=== PATIENT | female | born 1950 | race Caucasian/White ===

== ENCOUNTER → 2018-01-23 | Day surgery (SDC) | payer OTHER, MEDICARE ==
--- NOTE | 2018-01-23 20:39 | OP ---
DATE OF OPERATION: 01/23/2018 PREOPERATIVE DIAGNOSIS: Right breast mass at 12 o'clock, 4 cm from the nipple. POSTOPERATIVE DIAGNOSIS: Right breast mass at 12 o'clock, 4 cm from the nipple. PROCEDURE: Right ultrasound-guided core biopsy with clip placement. ANESTHESIA: Local. ATTENDING SURGEON: Timothy Nguyen MD ESTIMATED BLOOD LOSS: 10 mL COMPLICATIONS: Increased bleeding. DESCRIPTION OF OPERATION: Patient was made aware of the risks and benefits of the procedure and consented. She was placed in supine position. Under sterile conditions with 1% lidocaine for local anesthesia, small huyen was made in the skin. Using a 10-gauge suction biopsy device via lateral approach under ultrasound guidance, multiple cores were obtained and submitted to Pathology. Likewise, under ultrasound guidance, a U-shaped clip was placed into the biopsy region. During the procedure, there was bleeding accumulating by ultrasound, and externally, pressure was applied for a solid 15 minutes which stopped the bleeding. Steri-Strips and a sterile dressing were applied. An Dhaval wrap was wrapped around the chest wall to continue the hemostatic pressure. The patient tolerated the procedure well. We will contact her with results. TIMOTHY NGUYNE M.D. [id number]
--- NOTE | 2018-01-24 17:22 | PATH ---
Surgical Pathology Report Patient Name: SEEMA SPENCER [facility]. Rec. #: [id number] /Age/Gender: 1950 (Age: 67) / F Account: [id number] Location: [facility] RADIOLOGY U Taken: 01/23/2018 Received: 01/23/2018 Reported: 01/24/2018 Physicians: Hill Pulido M.D. Specimen(s) Received RIGHT BREAST 12:00 4CM FN CORE BIOPSY Clinical History Nonpalpable lesion Ultrasound findings: Suspicious Final Diagnosis BREAST, RIGHT, 12:00 4 CM FN, CORE BIOPSY: FIBROADIPOSE TISSUE SHOWING FAT NECROSIS. Electronically Signed Eufemia Jordan M.D. Gross Description Received in formalin labeled "right breast 12:00, 4 cmfn," is a 1.4 cm in length x 0.2 cm in diameter adan-yellow, cylindrical portion of fibroadipose tissue admixed with blood clot. The formalin is filtered and the specimen is entirely submitted in one cassette. Time to formalin fixation: < 1 minute Total formalin fixation time: Approximately 8 hours. /01/23/2018 saudi01/23/2018
== END | disposition home or self-care (01) ==
LOC: FRADUS-SUR 09:17
PROVIDERS: ATTEND Surgery Surgical Oncology
PROC: 0HBT3ZX Excision of Right Breast, Percutaneous Approach, Diagnostic (ICD-10-PCS; principal; 2018-01-23)
DX: N63.10 Unspecified lump in the right breast, unspecified quadrant (principal); N64.1 Fat necrosis of breast
CPT/HCPCS: 19083; 87899; 88305-TC; A4648